=== PATIENT | female | born 2000 | race Caucasian/White ===

== ENCOUNTER 2025-07-05 04:15 | Emergency (ER) | payer SELFPAY | END 2025-07-05 04:50 | disposition home or self-care (01) | LOC: EDBD → FB.ED 04:15 → SUPCPDRO 04:15 → FB.ED 04:50 | DX: J45.902 Unspecified asthma with status asthmaticus (principal) | CPT/HCPCS: 94640; J3535; J7512; J7620; 99284; A9270-GY ==